=== PATIENT | female | born 1965 | race Caucasian/White ===

== ENCOUNTER 2017-09-12 10:07 | Day surgery (SDC) | payer SELFPAY ==
[2017-09-11 13:06] VITALS: BMI 38.4
[2017-09-12] MEDS ORDERED: DEXAMETHASONE SOD PHOSPHATE 4 MG/1 ML VIAL ONE (12:02)
[2017-09-12] MEDS ORDERED: KETOROLAC TROMETHAMINE 30 MG/1 ML VIAL ONE (12:02)
[2017-09-12] MEDS ORDERED: LIDOCAINE HCL/PF 2% SDV 5ML VIAL ONE (12:02)
[2017-09-12] MEDS ORDERED: PROPOFOL 20 ML ONE (12:03)
--- NOTE | 2017-09-12 12:33 | HP ---
Admitting History and Physical - Admission Chief Complaint: Excessive laxity and Lipodystropy abdomen, flanks, protuberant abdominal muscle wall post History of Present Illness: 52 year old healthy female , requests removal of excess abdominal fat/loose skin in lower abdomen. Mentions her with large foetus resulting in muscle weakness. 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 History Source: Patient Limitations to Obtaining History: No Limitations (Coherent, and comfortable.) - Past Medical History ...LMP: 08/21/17 - Advance Directives Advance Directives: Yes: Health Care Proxy - Smoking History Smoking history: Never smoked - Alcohol/Substance Use Hx Alcohol Use: Yes (socially) Home Medications - Allergies Allergies/Adverse Reactions: Allergies Allergy/AdvReac Type Severity Reaction Status Date / Time No Known Allergies Allergy Verified 09/12/17 10:56 - Home Medications Home Medications: Ambulatory Orders Bupropion HCl [Wellbutrin -] 150 mg PO DAILY 09/11/17 Cypomethadine 4 mg PO HS 09/11/17 Enalapril Maleate [Vasotec] 10 mg PO DAILY 09/11/17 Hydrochlorothiazide [Hctz -] 25 mg PO DAILY 09/11/17 Levothyroxine Sodium [Synthroid] 125 mcg PO DAILY 09/11/17 Omeprazole 20 mg PO DAILY 09/11/17 Sennosides/Docusate Sodium [Pericolace -] 1 each PO PRN PRN 09/11/17 Venlafaxine HCl [Effexor -] 175 mg PO HS 09/11/17 Physical Examination Vital Signs: Vital Signs Temperature 98.4 F 09/12/17 11:05 Pulse Rate 91 H 09/12/17 11:05 Respiratory Rate 16 09/12/17 11:05 Blood Pressure 133/74 09/12/17 11:05 O2 Sat by Pulse Oximetry (%) 99 09/12/17 11:01
[2017-09-12] MEDS ORDERED: fentaNYL CITRATE 250 MCG/5 ML VIAL ONE (12:47)
[2017-09-12] MEDS ORDERED: MIDAZOLAM HCL 2 MG/2 ML SINGLE DOSE VIAL ONE (12:47)
[2017-09-12] MEDS ORDERED: EPINEPHrine/PF 1 MG/1 ML (1:1,000) AMPULE ONE (12:49)
[2017-09-12] MEDS ORDERED: LIDOCAINE HCL 1%, 10 MG/ML (20ML VIAL) ONE (12:50)
[2017-09-12] MEDS ORDERED: ceFAZolin SODIUM 1 GM VIAL IVPB ONE (13:48)
[2017-09-12] MEDS ORDERED: DESFLURANE GAS 240 ML BOTTLE IH ONE (14:37)
[2017-09-12] MEDS ORDERED: ROCURONIUM BROMIDE 50 MG/5 ML VIAL ONE (14:48)
--- NOTE | 2017-09-12 14:54 | HP ---
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 Patient states that she has been trying to lose weight and has been unsuccessful in reducing her abdominal girth. Her was a large baby, and since then, her abdomen has been protuberant. She maintains her exercise program. PAST HISTORY: Relevant for hypothyroidism. She is on levothyroxine 125 mcg p.o. daily. History of hypertension, takes hydrochlorothiazide 25 mg daily. She is also on enalapril, Vasotec 10 mg daily. At night, she takes 4 mg daily. Has some history of depression for which she takes Wellbutrin 150 mg daily. For her constipation and abdominal weakness, she takes sennosides docusate 1 tablet daily. On omeprazole 20 mg daily and venlafaxine one 75-mg tablet at hour of sleep. Patient is 5 feet 5 inches, 200 pounds. Her BSA is 1.88, and her BMI is 38.4. No history of DVTs. No history of asthma. No history of COPD. Patient is a nonsmoker. FINAL DIAGNOSIS: Abdominal diastasis with lipodystrophy. PLAN: Abdominoplasty and liposuction. Risks had been explained to her in the office. All questions had been answered. She is scheduled at [facility] on September 12, 2017. DAMIAN MURCIA M.D. [id number]
--- NOTE | 2017-09-12 16:50 | CONSULT ---
Consult Consult Specialty:: general surgery Referred by:: Rashi Geiger Reason for Consultation:: Intraoperative consult buldge in the diastasis - History of Present Illness History of Present Illness: 52 yo female PMH osbesity, history of marlon's thyroiditis, presented today for abdominoplasty with plication of diastasis of the rectus abdominal muscles for the purpose of body contouring. According to her plastic surgeon "she mentions her with large fetus (10lb) resulting in muscle weakness". we were asked to assess intraop. - History Source History Provided By: Medical Record, Caregiver Limitations to Obtaining History: Other (Intraoperative consultation performed when the patient was under general anesthesia) - Past Medical History ...LMP: 08/21/17 - Alcohol/Substance Use Hx Alcohol Use: Yes (socially) - Smoking History Smoking history: Never smoked Home Medications - Allergies Allergies/Adverse Reactions: Allergies Allergy/AdvReac Type Severity Reaction Status Date / Time No Known Allergies Allergy Verified 09/12/17 10:56 - Home Medications Home Medications: Ambulatory Orders Bupropion HCl [Wellbutrin -] 150 mg PO DAILY 09/11/17 Cypomethadine 4 mg PO HS 09/11/17 Enalapril Maleate [Vasotec] 10 mg PO DAILY 09/11/17 Hydrochlorothiazide [Hctz -] 25 mg PO DAILY 09/11/17 Levothyroxine Sodium [Synthroid] 125 mcg PO DAILY 09/11/17 Omeprazole 20 mg PO DAILY 09/11/17 Sennosides/Docusate Sodium [Pericolace -] 1 each PO PRN PRN 09/11/17 Venlafaxine HCl [Effexor -] 175 mg PO HS 09/11/17 Physical Exam Vital Signs: Vital Signs Temperature 98.4 F 09/12/17 11:05 Pulse Rate 91 H 09/12/17 11:05 Respiratory Rate 16 09/12/17 11:05 Blood Pressure 133/74 09/12/17 11:05 O2 Sat by Pulse Oximetry (%) 99 09/12/17 11:01 Vital Signs Period Temp Pulse Resp BP Sys/Arreola Pulse Ox Last 24 Hr 98.4 F-98.4 F 91-91 16-16 133-133/74-74 99 Respiratory: Yes: Intubated, Mechanically Ventilated Gastrointestinal: Yes: Hernia (ventral hernia firm but reducible midline buldge in the diastasis rectus midline. no violation into abdominal or pre peritoneal space. The diastatis was clearly marked and can be easily) Problem List - Problems (1) Ventral hernia without obstruction or gangrene Assessment/Plan: 52 yo female PMH obesity and hashimotos thyroiditis in to day for an abdominoplasty with plication of the rectus diastasis, intraoperatively a ventral hernia was discovered in the margin of diastasis with out violation of the abdominal cavity which was reducible. After examining the patient intraopertively it is my opinion that the area can be imbricated without injuring the abdominal contents andif the patient is at all symptomatic perioperatively she can be imaged with contrast CT scan of the abdomen and pelvis. We are happy to approach any problem laparoscopically if needed. Information was provided for followup. Thank you for the opportunity to participate in the care of this patient. Code(s): K43.9 - VENTRAL HERNIA WITHOUT OBSTRUCTION OR GANGRENE (2) Rectus diastasis of lower abdomen Code(s): M62.08 - SEPARATION OF MUSCLE (NONTRAUMATIC), OTHER SITE (3) Obesity (BMI 30-39.9) Code(s): E66.9 - OBESITY, UNSPECIFIED (4) H/O Marlon thyroiditis Code(s): Z86.39 - PERSONAL HISTORY OF ENDO, NUTRITIONAL AND METABOLIC DISEASE
[2017-09-12] MEDS ORDERED: BUPIVACAINE HCL/PF 0.5% (5MG/ML) 10 ML VIAL ONE (17:47)
[2017-09-12] MEDS ORDERED: LIDOCAINE 1%/EPI 1:100000 (20 ML MULTI DOSE VIAL) ONE (17:48)
[2017-09-12] MEDS: ACETAMINOPHEN 1000 MG/100 ML VIAL (NON FORMULARY) IVPB SCH (19:15)
[2017-09-12] MEDS ORDERED: LACTATED RINGERS SOLUTION 1,000 ML IV SCH (19:15)
[2017-09-12] MEDS ORDERED: ACETAMINOPHEN INJECTION 100 ML IVPB ONE (19:23)
[2017-09-12] MEDS ORDERED: ACETAMINOPHEN 1000 MG/100 ML VIAL (NON FORMULARY) IVPB ONE (19:30)
[2017-09-12] MEDS ORDERED: HEPARIN NA (PORCINE) 5,000 UNITS/ML 1ML VIAL SQ SCH (22:00)
[2017-09-13] MEDS: ACETAMINOPHEN 1000 MG/100 ML VIAL (NON FORMULARY) IVPB SCH ×3 (01:22→13:46)
[2017-09-13] MEDS: CEFAZOLIN 1 GM PUSH 1 GM/10 ML DISP.SYRIN IVPUSH SCH ×2 (01:58→09:57)
[2017-09-13] MEDS ORDERED: LEVOTHYROXINE NA 125 MCG TABLET (FP) PO SCH (07:00)
--- NOTE | 2017-09-13 07:30 | OP ---
DATE OF OPERATION: DATE OF DICTATION: 09/12/2017 PREOPERATIVE DIAGNOSES: 1. Abdominal wall diastasis. 2. Lipodystrophy and laxity of the abdominal apron. POSTOPERATIVE DIAGNOSES: 1. Abdominal laxity, rectus muscle laxity, diastasis recti. 2. Lipodystrophy. 3. Mass, intraabdominal, etiology not known. PROCEDURES DONE: 1. Abdominoplasty. 2. Repair of diastasis recti. 3. Intraoperative consultation, General Surgery, regarding soft mass. 4. Excision apron, lower abdomen. SURGEON: Yvette Villegas MD ANESTHESIOLOGIST: Johnnie DESCRIPTION OF PROCEDURE: Patient is a 52-year-old Liz female requesting abdominoplasty and liposuction. Patient has a history of hypothyroidism and previous cesarian section. Patient was brought to the operating room. Prior to that, markings had been carried out in the holding area. Patient was shown line of incision, areas of liposuction. Midline markings were performed. Patient was transferred to the operating table. At this time patient was identified, including the procedure. Standard procedure was carried out. Skin was prepped with Hibiclens after waiting for 3 minutes before draping was performed. had been applied, including Byers catheter. Using a 10 scalpel blade, incisions were made along the markings. Significant adhesions were found around the lower abdomen, including the previous cesarian section scar site. In the tube, significant bleeding was noted. The patient is having her period. Hemostasis had to be done meticulously. Diastasis was found to be over 5-6 cm entire length of the midline. Incidental finding was a firm mass located in the lower abdomen in the lower-most portion. Nature was not known. Patient had not given any symptoms. A surgical consult was then required at this time and waited until the general surgeon was available. Doctor scrubbed in and felt the mass. At this stage it was recommended to close the diastasis recti with interrupted sutures. Post surgery, post recovery, further investigations will be carried out regarding the nature of this tumor and possible surgery, if needed, laparoscopically, depending upon the etiology. Following the consultation, the dissection then proceeded up to the xiphoid bone. Diastasis recti was then repaired using 0 Ethibond. Interrupted sutures were applied in the supraumbilical area including the lower abdomen. Running suture of 2-0 Monocryl over the interrupted sutures was done above the umbilicus. Below the umbilicus, due to the mass, it was opted to only apply interrupted sutures. Hemostasis was examined. At this time excess skin was then excised in the lower abdomen, and Adonay fascia was repaired with 2-0 Monocryl. Interrupted sutures were applied. Dermal closure was done with 3-0 Biosyn. Interrupted sutures were applied, followed by subcuticular sutures. Liposuction was performed after the entire closure. Next, 1000 mL with 20 mg of 1% lidocaine and 1 mL of epinephrine was injected in both the flanks. After waiting for 20 minutes, using [employer] (formerly [employer]ARX[employer]) cannula 4 mm was used for both the flanks. Suction was performed after making a smaller incision. Due to the menses, there was significant oozing. Four JEANNINE drains were applied, 2 in the epigastric and 2 in hypogastric area, 1 on each side. Two were vertical, 2 were horizontal, brought through a separate stab area. FINDINGS: 1. Total time period of surgery exceeded the planned timing, and this was due to the intraoperative adhesions from previous surgery. 2. Excessive bleeding due to period. 3. Intraabdominal mass. Dressing consisted of Dermabond, Steri-Strips, Xeroform, and fluffs. Binder was applied while the patient on the bed. She was then sent to recovery room in a stable condition. She was continued to be monitored closely. ESTIMATED BLOOD LOSS: 300 mL. Gurmeet [id number]
[2017-09-13 07:57] VITALS: TEMP 98.8
--- NOTE | 2017-09-13 09:23 | PN ---
Progress Note (short form) - Note Progress Note: Anesthesia Post op Pt seen and examined S;Alert and awake O; Vital Signs Temperature 98.8 F 09/13/17 07:57 Pulse Rate 91 H 09/13/17 07:57 Respiratory Rate 18 09/13/17 07:57 Blood Pressure 109/58 09/13/17 07:57 O2 Sat by Pulse Oximetry (%) 98 09/12/17 22:30 A/P: Current Active Problems H/O Lachelle thyroiditis (Acute) Obesity (BMI 30-39.9) (Acute) Rectus diastasis of lower abdomen (Acute) Ventral hernia without obstruction or gangrene (Acute) s/p abdominoplasty Doing well post op Continue current care Max Mccauley MD
[2017-09-13] MEDS ORDERED: PT OWN MED DRAWER 7, Y5N ONE (09:51)
[2017-09-13] MEDS ORDERED: ENALAPRIL MALEATE 10 MG TABLET (FP) PO SCH (10:00)
[2017-09-13] MEDS ORDERED: HYDROCHLOROTHIAZIDE 25 MG TABLET (FP) PO SCH (10:00)
[2017-09-13 14:30] VITALS: BP 105/69; PULSE 93
--- NOTE | 2017-09-16 13:25 | PATH ---
Surgical Pathology Report Patient Name: RAYSA MORTON [facility]. Rec. #: [id number] /Age/Gender: 1965 (Age: 52) / F Account: [id number] Location: AMBULATORY SURG Taken: 09/13/2017 Received: 09/13/2017 Reported: 09/16/2017 Physicians: Yvette Villegas M.D. Specimen(s) Received ABDOMINAL FAT Clinical History Cosmetic Final Diagnosis SKIN AND SUBCUTANEOUS ADIPOSE TISSUE, ABDOMINOPLASTY: UNREMARKABLE SKIN AND SUBCUTANEOUS ADIPOSE TISSUE (GROSS ONLY) Electronically Signed Isaac Perez M.D. Gross Description Received in formalin labeled "fat and skin abdominal," is an 897 g, 20.0 x 19.0 x 4.0 cm aggregate of multiple unoriented portions of lu skin with underlying soft tissue. The epidermal surfaces are unremarkable. Sectioning reveals yellow, lobulated adipose tissue. No discrete lesions are identified. No sections are submitted, gross only. /09/13/2017 saudi09/13/2017
== END 2017-09-13 15:44 | disposition home or self-care (01) ==
LOC: JASUSAT 10:07 → J6S 21:57 → JASUSAT 09-13 15:44
PROVIDERS: ATTEND Plastic Surgery
PROC: 0J080ZZ Alteration of Abdomen Subcutaneous Tissue and Fascia, Open Approach (ICD-10-PCS; principal; 2017-09-12 12:30)
DX: M62.08 Separation of muscle (nontraumatic), other site (principal); E88.1 Lipodystrophy, not elsewhere classified; E06.3 Autoimmune thyroiditis; E66.9 Obesity, unspecified; R19.00 Intra-abdominal and pelvic swelling, mass and lump, unspecified site; K66.0 Peritoneal adhesions (postprocedural) (postinfection)
CPT/HCPCS: 84703; 88300-TC; 94660; J0131